=== PATIENT | female | born 1975 | race Caucasian/White ===

== ENCOUNTER 2018-01-25 18:45 | Emergency (ER) | payer OTHER ==
[~2018-01-25] VITALS: Ht 160 cm; Wt 81.8 kg
[2018-01-25 18:48] VITALS: Ht 160 cm; Wt 81.8 kg
[2018-01-25] MEDS ORDERED: PHENERGAN DM SYR5 ML PO (19:45)
[2018-01-25] MEDS ORDERED: VIBRAMYCIN 100100 MG PO (19:45)
[2018-01-25 20:11] VITALS: BP 111/67
== END 2018-01-25 20:11 | disposition home or self-care (01) ==
LOC: D.ER 18:45
DX: J06.9 Acute upper respiratory infection, unspecified (principal); J40 Bronchitis, not specified as acute or chronic; R09.89 Other specified symptoms and signs involving the circulatory and respiratory systems; F17.200 Nicotine dependence, unspecified, uncomplicated

== ENCOUNTER 2018-02-04 10:14 | Emergency (ER) | payer OTHER ==
[~2018-02-04] VITALS: Ht 160 cm; Wt 81.8 kg
[~2018-02-04 10:14] MED LIST: PHENERGAN DM SYR5 ML PO; VIBRAMYCIN 100100 MG PO
[2018-02-04 10:19] VITALS: BP 154/84; Ht 160 cm; Wt 81.8 kg
[2018-02-04 10:59] LABS: BASOPHILS 0.3 % (0-2); EOSINOPHILS 2.3 % (0-7); HEMATOCRIT 41.2 % (36.0-48.0); HEMOGLOBIN 13.8 g/dL (12-16); IMMATURE GRANULOCYTES 0.4 % (0-5); LYMPHOCYTES 20.9 % (15-50); MCH 30.9 pg (26.0-34.0); MCHC 33.5 g/dL (31.0-37.0); MCV 92.2 fL (80.0-100.0); MEAN PLATELET VOLUME 9.7 fL (7.4-10.4); MONOCYTES 7.1 % (2-11); PLATELET COUNT 293 10x3/uL (130-400); RBC 4.47 10x6/uL (4.00-5.40); RDW 14.2 % (11.5-14.5); WBC 18.6 10x3/uL (4.8-10.8)
[2018-02-04 11:24] LABS: CKMB 0.7 U/L (0.0-3.6); CREATINE KINASE 104 UL (21-215); TROPONIN-I < 0.017 ng/mL (0.000-0.060)
[2018-02-04 12:23] LABS: ALBUMIN 3.9 g/dL (3.4-5.0); ALKALINE PHOSPHATASE 81 U/L (46-116); ALT (SGPT) 25 U/L (10-68); CALC OSMOLALITY 277 mosm/kg (275-300); CALCIUM 8.8 mg/dL (8.5-10.1); CARBON DIOXIDE 26.3 mmol/L (21.0-32.0); CHLORIDE - SERUM 102 mmol/L (98-107); CREATININE - SERUM 0.8 mg/dL (0.6-1.3); GLUCOSE 120 mg/dL (74-106); POTASSIUM - SERUM 3.9 mmol/L (3.5-5.1); PROTEIN - SERUM 7.7 g/dL (6.4-8.2); SODIUM 139 mmol/L (136-145); UREA NITROGEN 11 mg/dL (7-18); eGFR NON AFRICAN AMERICAN 84 mL/min (90-120)
[2018-02-04] MEDS ORDERED: ATIVAN1 MG PO (12:59)
[2018-02-04] MEDS ORDERED: NORCO 7.5/325 T1 TA1 PO (12:59)
== END 2018-02-04 13:31 | disposition home or self-care (01) ==
LOC: D.ER 10:14
PROVIDERS: Emergency Medicine
DX: R07.9 Chest pain, unspecified (principal); J45.909 Unspecified asthma, uncomplicated; F17.200 Nicotine dependence, unspecified, uncomplicated; R00.0 Tachycardia, unspecified

== ENCOUNTER 2020-07-25 06:19 | Observation (INO) | payer SELFPAY ==
[~2020-07-25] VITALS: Ht 160 cm; Wt 93.2 kg
[~2020-07-25 06:19] MED LIST changes: +ATIVAN1 MG PO; +NORCO 7.5/325 T1 TA1 PO
--- NOTE | 2020-07-25 06:33 | NUR ---
BLOOD SENT TO LAB AT THIS TIME.
--- NOTE | 2020-07-25 06:44 | NUR ---
URINE SENT TO LAB AT THIS TIME.
[2020-07-25 06:52] LABS: BASOPHILS 0.4 % (0-2); EOSINOPHILS 2.2 % (0-7); HEMATOCRIT 41.7 % (36.0-48.0); HEMOGLOBIN 13.6 g/dL (12-16); IMMATURE GRANULOCYTES 0.3 % (0-5); LYMPHOCYTE ABS# 2.89 10x3/uL (1.18-3.74); LYMPHOCYTES 22.1 % (15-50); MCH 29.6 pg (26.0-34.0); MCHC 32.6 g/dL (31.0-37.0); MCV 90.7 fL (80.0-100.0); MEAN PLATELET VOLUME 9.4 fL (7.4-10.4); MONOCYTES 8.9 % (2-11); NEUTROPHIL ABS# 8.62 10x3/uL (1.56-6.13); NEUTROPHILS 66.1 % (40-80); PLATELET COUNT 328 10x3/uL (130-400); RDW 14.3 % (11.5-14.5); WBC 13.1 10x3/uL (4.8-10.8)
[2020-07-25 06:56] LABS: CALC OSMOLALITY 269 mosm/kg (275-300); CALCIUM 8.5 mg/dL (8.5-10.1); CARBON DIOXIDE 27.1 mmol/L (21.0-32.0); CHLORIDE - SERUM 101 mmol/L (98-107); CREATININE - SERUM 0.7 mg/dL (0.6-1.3); GLUCOSE 160 mg/dL (74-106); POTASSIUM - SERUM 3.9 mmol/L (3.5-5.1); SODIUM 134 mmol/L (136-145); UREA NITROGEN 9 mg/dL (7-18); eGFR NON AFRICAN AMERICAN > 90 mL/min (90-120)
[2020-07-25 07:02] LABS: ALBUMIN 3.7 g/dL (3.4-5.0); ALKALINE PHOSPHATASE 82 U/L (30-120); ALT (SGPT) 24 U/L (10-68); BILIRUBIN - TOTAL 0.28 mg/dL (0.2-1.3); LIPASE 95 U/L (73-393); PROTEIN - SERUM 7.7 g/dL (6.4-8.2)
[2020-07-25 07:08] LABS: UDS - AMPHET NEGATIVE QUAL (NEGATIVE); UDS - BARB NEGATIVE QUAL (NEGATIVE); UDS - BENZO NEGATIVE QUAL (NEGATIVE); UDS - COCAINE NEGATIVE QUAL (NEGATIVE); UDS - OPIATE NEGATIVE QUAL (NEGATIVE); UDS - PCP NEGATIVE QUAL (NEGATIVE); UDS - THC POSITIVE QUAL (NEGATIVE)
[2020-07-25 07:16] LABS: HCG URINE NEGATIVE (NEGATIVE)
[2020-07-25 07:26] LABS: BILIRUBIN NEGATIVE (NEGATIVE); KETONE NEGATIVE (NEGATIVE); NITRITE NEGATIVE (NEGATIVE); UROBILINOGEN NORMAL mg/dL (< 2)
[2020-07-25 07:30] VITALS: BP 119/67
[2020-07-25 07:32] LABS: BACTERIA FEW HPF (NONE SEEN); SQUAMOUS EPITHELIAL 0-5 HPF (0-4); WHITE CELLS - URINE RARE HPF (0-4)
[2020-07-25 08:30] VITALS: BP 114/90
[2020-07-25 09:30] VITALS: BP 112/62
[2020-07-25 11:30] VITALS: BP 124/63
[2020-07-25 12:55] VITALS: BP 131/74
--- NOTE | 2020-07-25 13:46 | NUR ---
RECEIVED REPORT FROM CINDY IN ER, PT ARRIVED VIA WHEELCHAIR ACCOMPANIED BY STAFF, LAB IN NOW TO DRAW BLOOD, PT IN STABLE CONDITION SITTING UP ON SIDE OF BED, PAIN 01/19
[2020-07-25 13:58] LABS: BASOPHILS 0.2 % (0-2); EOSINOPHILS 1.1 % (0-7); HEMATOCRIT 39.6 % (36.0-48.0); HEMOGLOBIN 12.8 g/dL (12-16); IMMATURE GRANULOCYTES 0.3 % (0-5); LYMPHOCYTE ABS# 2.66 10x3/uL (1.18-3.74); LYMPHOCYTES 14.3 % (15-50); MCH 29.7 pg (26.0-34.0); MCHC 32.3 g/dL (31.0-37.0); MCV 91.9 fL (80.0-100.0); MEAN PLATELET VOLUME 9.3 fL (7.4-10.4); MONOCYTES 7.1 % (2-11); NEUTROPHIL ABS# 14.34 10x3/uL (1.56-6.13); PLATELET COUNT 289 10x3/uL (130-400); RBC 4.31 10x6/uL (4.00-5.40); RDW 14.2 % (11.5-14.5)
[2020-07-25 13:59] LABS: WBC 18.6 10x3/uL (4.8-10.8)
[2020-07-25 19:23] VITALS: BP 131/74; Ht 160 cm; Wt 93.2 kg
[2020-07-26 05:19] LABS: BASOPHILS 0.2 % (0-2); EOSINOPHILS 1.2 % (0-7); HEMATOCRIT 38.6 % (36.0-48.0); HEMOGLOBIN 12.3 g/dL (12-16); IMMATURE GRANULOCYTES 0.3 % (0-5); LYMPHOCYTE ABS# 3.08 10x3/uL (1.18-3.74); LYMPHOCYTES 20.3 % (15-50); MCH 29.5 pg (26.0-34.0); MCHC 31.9 g/dL (31.0-37.0); MCV 92.6 fL (80.0-100.0); MEAN PLATELET VOLUME 9.8 fL (7.4-10.4); MONOCYTES 8.1 % (2-11); NEUTROPHILS 69.9 % (40-80); PLATELET COUNT 297 10x3/uL (130-400); RBC 4.17 10x6/uL (4.00-5.40); RDW 14.4 % (11.5-14.5); WBC 15.2 10x3/uL (4.8-10.8)
[2020-07-26 05:54] LABS: ALBUMIN 3.5 g/dL (3.4-5.0); ALKALINE PHOSPHATASE 84 U/L (30-120); ALT (SGPT) 22 U/L (10-68); BILIRUBIN - TOTAL 0.36 mg/dL (0.2-1.3); CALC OSMOLALITY 271 mosm/kg (275-300); CALCIUM 8.4 mg/dL (8.5-10.1); CARBON DIOXIDE 28.1 mmol/L (21.0-32.0); CHLORIDE - SERUM 103 mmol/L (98-107); CREATININE - SERUM 0.6 mg/dL (0.6-1.3); GLUCOSE 88 mg/dL (74-106); MAGNESIUM - SERUM 2.3 mg/dL (1.8-2.4); PHOSPHOROUS 2.8 mg/dL (2.5-4.9); PROTEIN - SERUM 6.9 g/dL (6.4-8.2); SODIUM 137 mmol/L (136-145); UREA NITROGEN 9 mg/dL (7-18); eGFR NON AFRICAN AMERICAN > 90 mL/min (90-120)
[2020-07-26 07:47] VITALS: BP 137/63
--- NOTE | 2020-07-26 08:56 | NUR ---
0730 - CALLED TO PT ROOM, PT IN BATHROOM, STATES "I WANT MY DISCHARGE PAPERS NOW. I STARTED MY PERIOD AND WILL NOT BE ABLE TO MANAGE IT HERE. I NEED TO BE AT HOME." ADVISED PT THAT I WOULD CALL THE PHYSICIAN TO RELAY THE MESSAGE AND INQUIRE ABOUT DISCHARGE. 0800 - DIETARY ASKED IF PT HAD BEEN DISCHARGED. I SAID THAT WE ARE WAITING ON THE PHYSICIAN TO RETURN A PAGE. 0830 - RG NGUYEN, CALLED AND AGREED TO DISCHARGE LONG IT IS OK WITH PHYTOPATHOLOGY TEACHER. 0845 - STAFF WENT TO PT ROOM TO GET INFORMATION NEEDED FOR DISCHARGE PACKET TO DISCOVER IV INTACT ON BED, WITH NO SIGN OF PATIENT OR FAMILY.
== END 2020-07-26 08:00 | disposition left against medical advice (07) ==
LOC: D.ER 06:19 → OBSVTIME 09:30 → D.EDHOLD 09:30 → D.MS 12:12
PROVIDERS: Emergency Medicine; Family Medicine; ADMIT Emergency Medicine; ATTEND Emergency Medicine
DX: R10.31 Right lower quadrant pain (principal); E87.1 Hypo-osmolality and hyponatremia; R73.9 Hyperglycemia, unspecified; D72.829 Elevated white blood cell count, unspecified; Z53.29 Procedure and treatment not carried out because of patient's decision for other reasons